=== PATIENT | male | born 1990 | race Caucasian/White ===

== ENCOUNTER 2019-06-26 13:44 | Emergency (ER) | payer OTHER, SELFPAY ==
[2019-06-26 14:04] VITALS: BP 113/67; PULSE 58; RESP 16; TEMP 36.8; O2SAT 98; BMI 25.0
--- NOTE | 2019-06-26 14:50 | PC.NURSE ---
was wrestling the other day. another person (approx 100lbs more per patient). pt has some yellow, lateral bruising on right leg. posterior leg has eccymotic dark areas.
--- NOTE | 2019-06-26 14:51 | DI.RAD.S_ITS ---
PROCEDURE: XR HIP W PEL IF DONE RT 2V INDICATIONS: R groin, posterior thigh pain, ruptured hamstring per ortho TECHNIQUE: AP pelvis with lateral view(s) of the right hip(s). COMPARISON: None. FINDINGS: Bones: No fractures or dislocations. Pelvic ring appears intact. No suspicious bony lesions. Mild bilateral hip degeneration Soft tissues: The visualized bowel gas pattern is normal. No suspicious soft tissue calcifications. IMPRESSION: Mild bilateral hip degeneration. If the patient's pain or other symptoms persist, consider further evaluation with MRI Dictated by: Salazar Montez M.D. on 06/26/2019 at 15:31 Approved by: Salazar Montez M.D. on 06/26/2019 at 15:32
[2019-06-26 15:11] VITALS: BP 116/58; PULSE 59; O2SAT 98
--- NOTE | 2019-06-26 15:50 | ED.LOWEXIN ---
HPI - Extremity Injury (Lower) <Jarvis BaileyAMALIA reeder - Last Filed: 06/26/19 22:15> General Chief Complaint: Extremity Injury, Lower Stated Complaint: right leg injury saturday/fallen twice/low bp Time Seen by Provider: 06/26/19 14:31 Source: patient Mode of arrival: Ambulatory Limitations: no limitations History of Present Illness HPI Narrative: This is a 28-year-old male, chew tobacco, who presents to ED with significant other with chief complain of right posterior thigh pain and bruise. Patient injured right thigh 5 days ago and evaluated at [facility] and today he was at [facility] orthopedist for follow-up. Patient reports he was wrestling prior injuring it and heavy opponents fell on him while he was in split position. Patient reports most pain is in posterior right thigh and groin area. Patient was told he has hamstring injury-complete verses partial rupture and was referred to ED for a hip x-ray. Patient is currently waiting for MRI test which orthopedist office initiated and waiting for approval from his insurance company. Patient has been using walker for ambulation at this time. Patient denies weakness to right leg with occasional tingling and numbness. Patient has been using [place] 1 tab every 4 hours (ordered Q6hr) and ibuprofen 600 mg 3 times a day with muscle relaxant for his discomfort. Patient reports pain increases with certain movements such as extension and flexion. Patient and significant other reports patient passed out twice last couple of days from severe pain when he was trying to sit on a toilet to have bowel movements. Related Data Allergies Allergy/AdvReac Type Severity Reaction Status Date / Time Penicillins Allergy Verified 06/26/19 14:42 Review of Systems <Jarvis Lynnlilli SENIOR GAMES TECHNICIAN - Last Filed: 06/26/19 22:15> Review of Systems Narrative: General: Denies fever, chills, fatigue, malaise, sweats. HEENT: Denies sinus pain, ear pain, sore throat, difficulty swallowing, dizziness. Respiratory: Denies dyspnea, cough, wheezing, hemoptysis, sputum. Cardiovascular: Denies chest pain, palpitations, orthopnea, edema. Gastrointestinal: Denies nausea, vomiting, abdominal pain, diarrhea, constipation, melena. : Denies dysuria, frequency, incontinence, hematuria, urinary retention. Musculoskeletal: See HPI Skin: Denies rash, skin lesions, or other. Neurologic: Denies weakness, headache, numbness, change in speech, confusion, seizures, incoordination. Psychiatric: No concerning psychosocial issues. 12-point review of systems is negative except for those stated above. Patient History <AMALIA Chester - Last Filed: 06/26/19 22:15> Surgical History History of surgery on arm (Acute) Social History Smoking Status: Never smoker Smoking Status: Never smoker tobacco type: smokeless tobacco alcohol intake frequency: a few times a month Substance Use Type: marijuana Exam <AMALIA Chester - Last Filed: 06/26/19 22:15> Narrative Exam Narrative: GEN: Alert, oriented x 3, well appearing and nourished, and in no acute distress. Head: Normal cephalic, atraumatic. No scalp or temporal tenderness, palpable mass or rash. EYES: Pupils are equal, round, and reactive to light and accommodation. Extraocular muscles are intact bilaterally. There is no subconjunctival hemorrhage, exudate and sclera non-icteric. ENT: Bilateral auditory canals and tympanic membranes clear. Hearing grossly intact. Nose without bleeding, purulent discharge or deviation. Facial sinuses nontender to palpate. Mucous membrane moist, no mucosal lesion. Throat without erythema, tonsillar hypertrophy or exudate. Uvula in midline, airway patent. Neck: Trachea in midline. No JVD, non-tender without lymphadenopathy. No masses or thyroid megaly. Supple, non-tender and no meningeal signs. CARDIAC: Normal regular rate and rhythm without murmurs, gallops, or rubs. No chest wall tenderness. No peripheral edema, cyanosis or pallor. Capillary refill is less than 2 seconds. RESPIRATORY: Lungs are clear to auscultate bilaterally. No cough, wheezes, rales, or rhonchi. No stridor, respiratory distress, increase work of breathing, or accessary muscle used. ABD: Abdomen soft, nontender and non-distended. No guarding or rebound tenderness to palpate. Bowel sounds are normal in all 4 quadrants. There is no palpable masses or organomegaly. SKIN: Warm, dry, normal color for patient. No erythema, lesions or rash over visible areas. BACK: Nontender without deformity or crepitance. No flank tenderness. NEUROLOGICAL: Alert and oriented to place, time and person. Sensation and motor function intact bilaterally. No facial droops, dysphasia. PSYCHIATRIC: Good judgement and reason, without hallucinations, abnormal affect or abnormal behaviors during the examination. Patient is not suicidal. Initial Vital Signs Initial Vital Signs: Vital Signs Temperature 98.3 F 06/26/19 14:04 Pulse Rate 58 L 06/26/19 14:04 Respiratory Rate 16 06/26/19 14:04 Blood Pressure 113/67 06/26/19 14:04 Pulse Oximetry 98 06/26/19 14:04 Extrem Right lower extremity: normal capillary refill, hip/thigh Details: abnormal to inspection, tenderness (Posterior thigh), swelling, abnormal ROM Details: pain with active ROM during and pain with resistance to and ecchymosis (Posterior thigh) and foot Details: normal capillary refill, normal to inspection, vascular exam Details: dorsalis pedis pulse present and motor-sensory exam Details: light-touch normal <Cynthia Lerner DO - Last Filed: 06/30/19 18:54> Initial Vital Signs Initial Vital Signs: Vital Signs Temperature 98.3 F 06/26/19 14:04 Pulse Rate 58 L 06/26/19 14:04 Respiratory Rate 16 06/26/19 14:04 Blood Pressure 113/67 06/26/19 14:04 Pulse Oximetry 98 06/26/19 14:04 Scores <AMALIA Chester - Last Filed: 06/26/19 22:15> GCS [place] coma scale eye opening: Spontaneous [place] coma scale verbal response: Orientated [place] coma scale motor response: Obey commands [place] coma scale total score: 15 NIH Stroke Scale Level of Conciousness: Alert, keenly responsive Ask month/age: Answers both questions correctly. Open/close eyes, close hand: Performs both tasks correctly Best gaze horizontal: Normal Visual calero: No visual loss Facial palsy: Normal symetrical movement Left arm drift: No drift for full 10 sec Right arm drift: No drift for full 10 sec Left leg drift: No drift for full 10 sec Right leg drift: No drift for full 10 sec Limb ataxia: Absent Sensory on face/arms/legs: Normal, no sensory loss Best language: No aphasia, normal Dysarthria: Normal Extinction or inattention: No abnormality Total NIH Stroke scale score: 0 Course <AMALIA Chester - Last Filed: 06/26/19 22:15> Orders Ordered: ED Orders 06/26/19 14:51 XR hip w pel if done RT 2V Stat 06/26/19 14:52 EKG-12 Lead Stat Vital Signs Vital signs: Vital Signs - 8 hr 06/26/19 15:11 06/26/19 16:24 Pulse Rate 59 L 65 Respiratory Rate 18 Blood Pressure [Right Arm] 116/58 L 126/70 Pulse Oximetry 98 99 <Cynthia Lerner DO - Last Filed: 06/30/19 18:54> Orders Ordered: ED Orders 06/26/19 14:51 XR hip w pel if done RT 2V Stat 06/26/19 14:52 EKG-12 Lead Stat Vital Signs Vital signs: Vital Signs - 8 hr 06/26/19 15:11 06/26/19 16:24 Pulse Rate 59 L 65 Respiratory Rate 18 Blood Pressure [Right Arm] 116/58 L 126/70 Pulse Oximetry 98 99 MDM - Extremity Injury (Lower) <AMALIA Chester - Last Filed: 06/26/19 22:15> Differential Diagnosis Differential diagnosis: Likely other (Hamstring strain, hamstring rupture, hip fracture) Medical Records Attestation: I reviewed the patient's medical records. Imaging Data XR-Hip RT: Radiologist's impression: [address] [address] XRay Report Signed Patient: Loco Bentley JMR#: [id number] : 1990Acct:[id number] Age/Sex: 28 / MDate of Service: 06/26/19 Loc: ED Accession Number: [id number] Procedure: XR hip w pel if done RT 2V Ordering Provider: Jarvis Carrillo PROCEDURE: XR HIP W PEL IF DONE RT 2V INDICATIONS: R groin, posterior thigh pain, ruptured hamstring per ortho TECHNIQUE: AP pelvis with lateral view(s) of the right hip(s). COMPARISON: None. FINDINGS: Bones: No fractures or dislocations. Pelvic ring appears intact. No suspicious bony lesions. Mild bilateral hip degeneration Soft tissues: The visualized bowel gas pattern is normal. No suspicious soft tissue calcifications. IMPRESSION: Mild bilateral hip degeneration. If the patient's pain or other symptoms persist, consider further evaluation with MRI Dictated by: Salazar Montez M.D. on 06/26/2019 at 15:31 Approved by: Salazar Montez M.D. on 06/26/2019 at 15:32 ECG Data Attestation: I personally reviewed and interpreted this ECG as follows: Prior ECG tracings: not available for review Interpretation: Sinus bradycardia rate at 51. Normal [place] No ST elevation or depression VT int 143, normal QRS, QT/QTc 391/367 MDM Narrative Medical decision making narrative: This is a 28-year-old male who presents to ED with right posterior thigh pain since Saturday after he injured during wrestling. He had in split position when his opponent who is 100 lbs heavier than the patient was on top the patient. Patient was referred to [facility] Emergency room for hip x-ray test by Dr. Palomo from [facility] orthopedist. Patient medicated himself with his own [place], Motrin and muscle relaxant while waiting for x-ray test result. Hip x-ray shows no acute findings such as dislocation or fracture but bilateral mild hip degeneration. The patient had passed out a couple of times with severe pain with sitting/standing, changing position and during bowel movements and this is likely due to vasovagal symptoms. EKG shows sinus bradycardia at rest. Patient and significant other requested for MRI test but advised to follow-up with orthopedist since non-emergent MRI test is difficulty to be obtained in ED which can be a drained by orthopedic office. Patient offered crutches but states is more comfortable using a walker will arrange to get a wheelchair. Return precautions were discussed with the patient and verbalized understanding and agrees with the treatment plan. Discharge Plan Departure Patient Disposition: Home Clinical Impression: Right leg pain Discharge Date/Time: 06/26/19 16:29 Instructions: DI for Hamstring Strain Activity Restrictions/Additional Instructions: You have been diagnosed with [right hamstring injury and pain in upper leg. Hip x-ray shows no acute findings such as fracture or dislocation. X-ray shows mild bilateral hip degeneration. Your EKG looked normal in sinus Anuel]. What to do: *Take your medications as directed. Continue to take your outpatient medications such as ibuprofen, muscle relaxant and [place]. Please incorporate stool softener and high-fiber diets since [place] could cause constipation. *Follow up with your primary care provider/orthopedist as scheduled, call for an appointment. Let them know you were seen in the ED and that we asked you to be seen in follow up. *Return to ED if you have any new, worsening, or concerning symptoms, such as [tingling, numbness, weakness to affected limb, chest pain, breathing difficulty, unable to tolerate fluids, or any acute concerns]. Referrals: Avila Palomo MD [Physician] -
[2019-06-26 16:24] VITALS: BP 126/70; PULSE 65; RESP 18; O2SAT 99
== END 2019-06-26 16:29 | disposition home or self-care (01) ==
PROVIDERS: Emergency Provider Nurse Practitioner Family
DX: M79.604 Pain in right leg (principal); R00.1 Bradycardia, unspecified
CPT/HCPCS: 73502; 93005; 93010; 99282; 99284

== ENCOUNTER → 2019-07-02 19:01 | Outpatient (CLI) | payer OTHER, SELFPAY ==
--- NOTE | 2019-07-02 19:02 | DI.MRI.S_ITS ---
PROCEDURE: MR FEMUR RT WO CON INDICATIONS: UNSPECIFIED INJURY MUSLCE FASIA TENDON RIGHT LEG TECHNIQUE: Noncontrast coronal and sagittal T1 spin echo and STIR; axial T1 spin echo and T2 fast spin echo with fat saturation through the right side. COMPARISON: None. FINDINGS: Image quality: Diagnostic. Bones: No acute fracture, dislocation, or suspicious osseous lesion of the right femur is evident. Please note that the knee and hip joints are not adequately evaluated on this study. Soft tissues: Full-thickness tears are present involving the origins of the biceps femoris, semitendinosus, and semimembranosus tendons. There is moderate distal retraction of the torn tendon fragments by approximately 4 cm. There is a large heterogeneous fluid collection along the course of the torn tendons demonstrating variable degrees of signal intensity. This large fluid collection measures at least 19.6 x 5.8 x 4.9 cm. The adductor louie tendon is mildly edematous, but does not appear to be completely torn. No associated bony avulsion is appreciated. The adjacent sciatic nerve demonstrates thickening and increased signal through this region. There is edema within the adjacent soft tissues. There is also increased signal evident involving the proximal gracilis muscle the tendon origin is intact. Otherwise, the remainder of the muscles and tendons of the right thigh are within normal limits. Areas of mild subcutaneous edema are present. No soft tissue masses are evident. Please note that the ligamentous, tendinous, and cartilaginous structures at the knee and hip joints are not adequately characterized on this study. IMPRESSION: 1. Avulsion tears of the biceps femoris, semimembranosus, and semitendinosus tendons from the ischial tuberosity with mild distal retraction. 2. Large heterogeneous fluid collection at the site of the avulsed tendons is felt to represent soft tissue hematoma. 3. Gracilis muscle strain. There may also be a low-grade strain of the abductor louie. 4. Enlargement and increased signal of the sciatic nerve probably is reactive. Please correlate clinically for possible sciatic nerve symptoms. 5. No fractures. Dictated by: Huber Seth M.D. on 07/03/2019 at 8:52 Approved by: Huber Seth M.D. on 07/03/2019 at 9:11
== END ==
PROVIDERS: Visit Provider Orthopaedic Surgery Adult Reconstructive Orthopaedic Surgery
DX: S76.811A Strain of other specified muscles, fascia and tendons at thigh level, right thigh, initial encounter (principal); X58.XXXA Exposure to other specified factors, initial encounter
CPT/HCPCS: 73718

== ENCOUNTER 2020-04-25 06:55 | Emergency (ER) | payer OTHER, SELFPAY ==
[2020-04-25 07:16] VITALS: BP 138/72; PULSE 49; RESP 18; TEMP 36.8; O2SAT 100; BMI 22.4
[2020-04-25 07:22] LABS: Appearance Urine UA SL CLOUDY; Bilirubin Urine UA NEGATIVE (NEGATIVE); Color Urine UA BROWN; Glucose Urine UA NEGATIVE (Negative); Ketones Urine UA NEGATIVE (NEGATIVE); Leukocyte Esterase Urine UA NEGATIVE (NEGATIVE); Nitrite Urine UA NEGATIVE (Negative); Occult Blood Urine UA 3+ (Negative); Protein Urine UA 1+ (Negative); Specific Gravity Urine UA >=1.030 (1.000-1.035); Urobilinogen Urine UA 0.2 E.U./dL (0.2)
--- NOTE | 2020-04-25 07:22 | ED_ITS ---
HPI - Abdominal Pain General Chief Complaint: Urogenital-Male Stated Complaint: 'kidneys' Time Seen by Provider: 04/25/20 07:12 Source: patient and family Mode of arrival: Ambulatory Limitations: no limitations History of Present Illness HPI narrative: Patient here with his father. Complains of right flank pain off of for the past 2 weeks. Worsened this morning 04/23. Denies any pain at this time. Vomited once. Has urinary urgency today. No urinary complaints prior to today. No hematuria.. Can not find comfortable position when the pain is present. No groin pain testicular pain. No hematuria. No fever chills. No cough cold congestion. No abdominal pain. MD complaint: flank pain Related Data Previous Rx's Medication Instructions Recorded hydrocodone-acetaminophen 1 tab PO Q6H PRN #7 tab 04/25/20 ibuprofen 600 mg PO Q6H PRN #24 tab 04/25/20 ondansetron 4 mg PO Q8H PRN #10 tab 04/25/20 tamsulosin 0.4 mg PO DAILY #7 cap 04/25/20 Allergies Allergy/AdvReac Type Severity Reaction Status Date / Time Penicillins Allergy Verified 06/26/19 14:42 Review of Systems Review of Systems Narrative: GENERAL: Denies chills, fatigue, malaise, fever, sweats. HEENT: Denies sinus pain, ear pain, sore throat, difficulty swallowing, dizziness. RESPIRATORY: Denies dyspnea, cough, wheezing, hemoptysis, sputum. CARDIOVASCULAR: Denies chest pain, palpitations, orthopnea, edema, GASTROINTESTINAL: Complains nausea, vomiting, denies abdominal pain, diarrhea, constipation, melena. : Denies dysuria, complains frequency, denies incontinence, hematuria, urinary retention. MUSCULOSKELETAL: denies weakness, joint pain, or bony pain SKIN: Denies rash, skin lesions NEUROLOGIC: Denies weakness, headache, numbness, change in speech, confusion, seizures, incoordination. PSYCHIATRIC: No concerning psychosocial issues. ROS Unobtainable: All systems reviewed & are unremarkable except as noted in HPI and below Patient History Surgical History History of surgery on arm (Acute) Social History Smoking Status: Never smoker Smoking Status: Never smoker tobacco type: smokeless tobacco alcohol intake frequency: a few times a month Substance Use Type: marijuana Exam Narrative Exam Narrative: GENERAL: patient appears stated age. Well-nourished, well- developed patient, in no distress, not toxic HEAD: Atraumatic. Normocephalic. EYES: Pupils equal round and reactive. NECK: Trachea midline. Non tender CARDIOVASCULAR: Regular rate and rhythm without murmurs, gallops, or rubs. RESPIRATORY: Clear to auscultation. Breath sounds equal bilaterally. No wheezes, rales, or rhonchi. GASTROINTESTINAL: Abdomen soft, non-tender, nondistended. EXTREMITIES: No edema or joint tenderness. BACK: Nontender without deformity or crepitance. No flank tenderness. NEURO: AOx4. SKIN: No rash or erythema of visible areas PSYCH: Not anxious, is cooperative Initial Vital Signs Initial Vital Signs: Vital Signs Temperature 98.3 F 04/25/20 07:16 Pulse Rate 49 L 04/25/20 07:16 Respiratory Rate 18 04/25/20 07:16 Blood Pressure 138/72 04/25/20 07:16 Pulse Oximetry 100 04/25/20 07:16 Course Course Course Narrative: Pain-free at time of discharge Orders Ordered: ED Orders 04/25/20 07:19 UA Complete [Urinalysis and Microscopic] Stat 04/25/20 07:21 CT kidney ureter bladder (KUB) Stat 04/25/20 07:41 Complete Blood Count AUTO DIFF Stat Comprehensive Metabolic Panel Stat Discontinued Medications Sodium Chloride (Normal Saline 0.9%) 1,000 mls @ 1,000 mls/hr IV BOLUS ONE Stop: 04/25/20 08:20 Last Infusion: 04/25/20 09:28 Dose: 0 mls/hr Documented by: Admin: 04/25/20 07:49 Dose: 1,000 mls/hr Documented by: LISA Ketorolac Tromethamine (Toradol) 15 mg IM NOW ONE Stop: 04/25/20 08:31 Last Admin: 04/25/20 09:13 Dose: Not Given Documented by: KRISHAN Ketorolac Tromethamine (Toradol) 15 mg IV NOW ONE Stop: 04/25/20 08:43 Last Admin: 04/25/20 08:50 Dose: 15 mg Documented by: KSWACKH Ondansetron HCl (Zofran) 4 mg IV NOW ONE Stop: 04/25/20 08:40 Last Admin: 04/25/20 08:49 Dose: 4 mg Documented by: KRISHAN Tamsulosin HCl (Flomax) 0.4 mg PO NOW ONE Stop: 04/25/20 08:43 Last Admin: 04/25/20 08:49 Dose: 0.4 mg Documented by: KRISHAN Reevaluation(s) Reevaluation #1: Pain is improved with Toradol IV fluids and Zofran and Flomax. Patient and father desire discharge home. Currently pain-free no nausea Time: 09:34 Vital Signs Vital signs: Vital Signs - 8 hr 04/25/20 07:16 04/25/20 09:26 Temperature 98.3 F Pulse Rate 49 L 56 L Respiratory Rate 18 12 Blood Pressure 138/72 124/64 Pulse Oximetry 100 100 MDM - Abdominal Pain Differential Diagnosis Differential diagnosis: Likely abdominal pain, acute appendicitis and calculus of kidney Lab Data Attestation: I reviewed the patient's lab results. Result diagrams: 04/25/20 07:41 04/25/20 07:41 Labs: Lab Results 04/25/20 04/25/20 04/25/20 Range/Units 07:19 07:41 07:41 WBC 10.7 (4.5-11.0) X10^3/uL RBC 4.84 (4.5-5.9) X10^6/uL Hgb 14.1 (13.5-17.5) g/dL Hct 41.1 (41-53) % MCV 85.0 (80-100) fL MCH 29.1 (26-34) PG MCHC 34.2 (30-36) % RDW 13.4 (11.6-14.8) % Plt Count 153 (150-400) X10^3/uL Neut % (Auto) 86.7 H (50-75) % Lymph % (Auto) 7.2 L (25-40) % [place] % (Auto) 4.1 (3-14) % Eos % (Auto) 1.5 L (2-4) % Baso % (Auto) 0.5 (0-2) % Neut # (Auto) 9300 H (3153-0722) /uL Lymph # (Auto) 800 L (1290-8860) /uL [place] # (Auto) 400 (0-900) /uL Eos # (Auto) 200 (0-450) /uL Baso # (Auto) 100 (0-100) /uL Sodium 141 (137-145) mmol/L Potassium 4.1 (3.4-5.1) mmol/L Chloride 104 (98-107) mmol/L Carbon Dioxide 30 (22-32) mmol/L BUN 15 (9-20) mg/dL Creatinine 0.97 (0.66-1.25) mg/dL Estimated GFR > 60.0 (>60) mL/min BUN/Creatinine Ratio 15.5 (6-22) Glucose 108 H (70-100) mg/dL Calcium 9.2 (8.4-10.2) mg/dL Total Bilirubin 0.5 (0.2-1.3) mg/dL AST 23 (17-59) IU/L ALT 17 (<50) IU/L Alkaline Phosphatase 47 (38-126) U/L Total Protein 7.1 (6.3-8.2) g/dL Albumin 4.4 (3.5-5.0) g/dL Globulin 2.7 (1.7-4.1) g/dL Albumin/Globulin Ratio 1.6 (1.0-2.8) Urine Color Brown Urine Appearance Sl cloudy Urine pH 5.0 (4.5-8.0) Ur Specific [place] >=1.030 H (1.000-1.035) Urine Protein 1+ H (Negative) Urine Glucose (UA) Negative (Negative) g/dL Urine Ketones Negative (NEGATIVE) Urine Occult Blood 3+ H (Negative) Urine Nitrate Negative (Negative) Urine Bilirubin Negative (NEGATIVE) Urine Urobilinogen 0.2 (0.2) E.U./dL Ur Leukocyte Esterase Negative (NEGATIVE) Urine RBC >100/hpf H (0-5/HPF) Urine WBC 1-5/hpf (0-5/HPF) Calcium Oxalate Crystal Occasional H Urine Bacteria Moderate (10-30) H (None) Urine Mucus 1+ H (Negative) Ur Culture Indicated? Cult not indicated Imaging Data CT scan - abdomen/pelvis: Radiologist's Impression: [address] [address] [address] Scan Report Signed Patient: Loco Bentley#: [id number] : 1990Acct:[id number] Age/Sex: 29 / MDate of Service: 04/25/20 Loc: ED Accession Number: [id number] Procedure: CT kidney ureter bladder (KUB) Ordering Provider: Ben Raymond MD PROCEDURE: CT KIDNEY URETER BLADDER (KUB) INDICATIONS: Right flank pain TECHNIQUE: Noncontrast 5 mm thick sections acquired from the diaphragms to the symphysis. 5 mm thick coronal and sagittal reformats were then performed. For radiation dose reduction, the following was used: automated exposure control, adjustment of mA and/or kV according to patient size. COMPARISON: [facility], CT, CT ABDOMEN PELVIS WITH CONTRAST, 01/07/2014, 23:02. FINDINGS: Image quality: Excellent. Lung bases: Lung bases are clear. Heart size is normal. Urinary system: There are bilateral renal calculi. There is a 5 mm stone in superior pole of the right kidney. A 2 mm stone is seen within the bladder at the right UVJ, likely a recently passed stone. There is mild right hydronephrosis and hydroureter. There are several 1-2 mm punctate calculi in left kidney. No left ureteral stones. No left hydronephrosis. Both kidneys are normal in size. Bladder wall thickness is normal. Other solid organs: Liver is normal in size. Gallbladder is normal. Pancreas is normal in contours. Spleen is normal in size. No adrenal nodules. Peritoneum and bowel: A moderate amount of stool in colon. Unenhanced bowel loops demonstrate normal wall thickness and caliber. No free fluid or air. Nodes and vessels: No retroperitoneal or mesenteric adenopathy by size criteria. Aorta and inferior vena cava are normal in caliber. Abdominal wall: No ventral hernias. Pelvis: No free pelvic fluid. No inguinal hernias or adenopathy. Bones: No suspicious bony lesions. No vertebral body compression fractures. IMPRESSION: 1. There is a 2 mm stone in the urinary bladder at the right UVJ, likely a recently passed stone. There is mild right hydronephrosis and hydroureter. 2. Nephrolithiasis bilaterally with several nonobstructive stones. No left hydronephrosis. Dictated by: Boo Toscano M.D. on 04/25/2020 at 8:30 Approved by: Boo Toscano M.D. on 04/25/2020 at 8:37 MDM Narrative Medical decision making narrative: Appropriate for discharge home. Urinalysis reviewed. No secondary signs of UTI/urinary tract infection. White count normal. At this time no antibiotics. Discharge Plan Departure Patient Disposition: Home Clinical Impression: Hydronephrosis with ureteral calculus Discharge Date/Time: 04/25/20 09:42 Instructions: DI for Kidney Stones Activity Restrictions/Additional Instructions: No operating machinery or driving today. Return if worse or any questions or concerns. Keep well hydrated. Called provided urology office today for office recheck this week. Filter the urine for capturing the kidney stone to bring to the office. Prescriptions: New hydrocodone-acetaminophen 5-325 mg tablet 1 tab PO Q6H PRN (Reason: pain) Qty: 7 RF: 0 tamsulosin 0.4 mg capsule 0.4 mg PO DAILY Qty: 7 RF: 0 ibuprofen 600 mg tablet 600 mg PO Q6H PRN (Reason: fever or pain) Qty: 24 RF: 0 ondansetron 4 mg tablet,disintegrating 4 mg PO Q8H PRN (Reason: nausea and vomiting) Qty: 10 RF: 0 Referrals: Guido Blanca MD [Physician] - Stand Alone Forms: Work Release Note
[2020-04-25 07:45] LABS: Bacteria Urine Moderate (10-30); Calcium Oxalate Crystals Urine Occasional; Culture Indicated Urine Cult Not Indicated; Mucus Urine 1+ (Negative); RBC Urine >100/HPF (0-5/HPF); WBC Urine 1-5/HPF (0-5/HPF)
[2020-04-25] MEDS: SODIUM CHLORIDE 0.9% 1,000 ML 1000 ML IV (07:49)
[2020-04-25 07:53] LABS: Add Manual Diff / Slide Review NO; Basophils Absolute Auto 100 /uL (0-100); Basophils Percent Auto 0.5 % (0-2); Eosinophils Absolute Auto 200 /uL (0-450); Eosinophils Percent Auto 1.5 % (2-4); Hematocrit 41.1 % (41-53); Hemoglobin 14.1 g/dL (13.5-17.5); Lymphocytes Absolute Auto 800 /uL (1100-4500); Lymphocytes Percent Auto 7.2 % (25-40); Mean Corpuscular HGB Conc 34.2 % (30-36); Mean Corpuscular Hemoglobin 29.1 PG (26-34); Monocytes Absolute Auto 400 /uL (0-900); Monocytes Percent Auto 4.1 % (3-14); Neutrophils Absolute Auto 9300 /uL (1500-7000); Neutrophils Percent Auto 86.7 % (50-75); Platelet Count 153 X10^3/uL (150-400); Red Blood Cell Count 4.84 X10^6/uL (4.5-5.9); Red Cell Distribution Width 13.4 % (11.6-14.8); White Blood Cell Count 10.7 X10^3/uL (4.5-11.0)
[2020-04-25 08:03] LABS: Alanine Aminotransferase 17 IU/L (<50); Albumin 4.4 g/dL (3.5-5.0); Albumin Globulin Ratio 1.6 (1.0-2.8); Alkaline Phosphatase 47 U/L (38-126); Aspartate Aminotransferase 23 IU/L (17-59); BUN Creatinine Ratio 15.5 (6-22); Bilirubin Total 0.5 mg/dL (0.2-1.3); Blood Urea Nitrogen 15 mg/dL (9-20); Calcium 9.2 mg/dL (8.4-10.2); Carbon Dioxide 30 mmol/L (22-32); Chloride 104 mmol/L (98-107); Estimated Glomerular Filt Rate > 60.0 mL/min (>60); Globulin 2.7 g/dL (1.7-4.1); Glucose 108 mg/dL (70-100); HEMOLYSIS < 15 (0-50); Potassium 4.1 mmol/L (3.4-5.1); Sodium 141 mmol/L (137-145); Total Protein 7.1 g/dL (6.3-8.2)
[2020-04-25] MEDS: TAMSULOSIN 0.4 MG CAPSULE PO (08:49)
[2020-04-25] MEDS: ONDANSETRON 4 MG/2 ML INJ IV (08:49)
[2020-04-25] MEDS: KETOROLAC 60 MG/2 ML VIAL 15 MG IV (08:50)
[2020-04-25 09:26] VITALS: BP 124/64; PULSE 56; RESP 12; O2SAT 100
--- NOTE | 2020-04-25 09:30 | PC.NURSE ---
Patient reports pain was sudden in nature never had pain like this before.
== END 2020-04-25 09:42 | disposition home or self-care (01) ==
PROVIDERS: Emergency Provider Emergency Medicine
DX: N13.30 Unspecified hydronephrosis (principal); N20.1 Calculus of ureter; R39.15 Urgency of urination
CPT/HCPCS: 36415; 74176; 80053; 81001; 85025; 96361; 96374; 96375; 99284; J1885; J2405

== ENCOUNTER → 2020-10-13 14:25 | Outpatient (CLI) | payer OTHER, SELFPAY ==
--- NOTE | 2020-10-13 | DI.CT.S_ITS ---
PROCEDURE: CT ABDOMEN PELVIS WO CON INDICATIONS: kidney stone TECHNIQUE: Noncontrast 5 mm thick sections acquired from the diaphragms to the symphysis. 5 mm thick coronal and sagittal reformats were then performed. For radiation dose reduction, the following was used: automated exposure control, adjustment of mA and/or kV according to patient size. COMPARISON: [facility], CT, CT KIDNEY URETER BLADDER (KUB), 04/25/2020, 7:30. FINDINGS: Image quality: Excellent. Lung bases: Lung bases are clear. Heart size is normal. Urinary system: Kidneys demonstrate no hydronephrosis or perinephric stranding. There is a small 2 mm nonobstructing stone within the left kidney. There are possibly 1-2 additional punctate nonobstructing stones in the left kidney. No discrete right renal stones. Both ureters appear non-dilated throughout their expected courses without a discrete ureteral stone identified.. Bladder wall thickness is normal; no calcified bladder stones. Other solid organs: Noncontrast evaluation of the liver demonstrates no focal hepatic lesions. Gallbladder appears within normal limits without calcified gallstones. Pancreas is normal in contours without peripancreatic fat stranding or fluid collections. Spleen is normal in size. No adrenal nodules. Peritoneum and bowel: Unenhanced bowel loops demonstrate normal wall thickness and caliber. No evidence of appendicitis. There is colonic diverticulosis without acute diverticulitis. Moderate colonic stool distention is present in the rectum. No free fluid or air. Nodes and vessels: No retroperitoneal or mesenteric adenopathy by size criteria. Aorta and inferior vena cava are normal in caliber. Abdominal wall: No ventral hernias. Pelvis: No free pelvic fluid. No inguinal hernias or adenopathy. Bones: No suspicious bony lesions. 2 surgical anchors are demonstrated within the right ischial tuberosity. No vertebral body compression fractures. IMPRESSION: 1. Left nephrolithiasis with small punctate renal stones redemonstrated. There has been interval passage of the previously visualized right renal stone. No evidence of obstructive uropathy. Dictated by: Elder Means M.D. on 10/13/2020 at 15:53 Approved by: Elder Means M.D. on 10/13/2020 at 16:09
== END ==
PROVIDERS: Referring Provider Urology; Visit Provider Urology
DX: N20.0 Calculus of kidney (principal); Z87.448 Personal history of other diseases of urinary system
CPT/HCPCS: 74176

== ENCOUNTER → 2021-03-16 16:29 | Outpatient (CLI) | payer OTHER, SELFPAY ==
--- NOTE | 2021-03-16 | DI.RAD.S_ITS ---
PROCEDURE: XR SHOULDER LT MIN 2V INDICATIONS: M25.512 S49.92XA V89.2XXD TECHNIQUE: 3 views of the shoulder were acquired. COMPARISON: None. FINDINGS: Bones: ORIF of the left clavicle proximal humerus are present. Hardware is intact without evidence of hardware fracture or periprosthetic loosening. There is good anatomic alignment. Soft tissues: No suspicious soft tissue calcifications. IMPRESSION: Postsurgical changes as above. Dictated by: Ale Anderson M.D. on 03/16/2021 at 16:48 Approved by: Ale Anderson M.D. on 03/16/2021 at 16:49
== END ==
PROVIDERS: Referring Provider Physician Assistant; Visit Provider Physician Assistant
DX: S42.002D Fracture of unspecified part of left clavicle, subsequent encounter for fracture with routine healing (principal); S42.202D Unspecified fracture of upper end of left humerus, subsequent encounter for fracture with routine healing; V89.2XXD Person injured in unspecified motor-vehicle accident, traffic, subsequent encounter
CPT/HCPCS: 73030